=== PATIENT | male | born 1985 | race Caucasian/White ===

== ENCOUNTER 2017-02-02 05:21 | Emergency (ER) | payer SELFPAY ==
[~2017-02-02] VITALS: Ht 175.3 cm; Wt 100.7 kg
[2017-02-02 05:23] VITALS: BP 120/84
--- NOTE | 2017-02-02 05:32 | NUR ---
Erick arango in ED - 02/02/17 at 0533 by [facility] PATIENT AMBULATED TO ER BED 3.
--- NOTE | 2017-02-02 05:33 | NUR ---
PATIENT TO ER BED 3.
--- NOTE | 2017-02-02 05:37 | NUR ---
31 Y/O M W/C/O RUPTURE OF VARICOSE ULCER TO R INNER ANKLE X TODAY AT 0410 AM. BLEEDING UNDER CONTROL BUT PT STATES TO BE IN PAIN. NO S/S OF DISTRESS NOTED, ER MADE AWARE.
[2017-02-02] MEDS ORDERED: ACETAMINOPHEN EXTRA STRENGTH 500 MG TAB PO ONE (06:45)
[2017-02-02 07:24] VITALS: BP 122/74
--- NOTE | 2017-02-02 07:24 | NUR ---
Patient discharged with v/s stable. Written and verbal after care instructions given and explained. Patient alert, oriented and verbalized understanding of instructions. Wheel Chair Assisted with to car. All questions addressed prior to discharge. ID band removed. Patient advised to follow up with PMD. Rx of KEFLEX, NAPROSYN given. Patient educated on indication of medication including possible reaction and side effects. Opportunity to ask questions provided and answered.
== END 2017-02-02 07:24 | disposition home or self-care (01) ==
LOC: MED 05:21
DX: I83.018 Varicose veins of right lower extremity with ulcer other part of lower leg (principal)

== ENCOUNTER 2017-02-04 21:55 | Emergency (ER) | payer SELFPAY ==
[~2017-02-04] VITALS: Ht 175.3 cm; Wt 100.7 kg
[2017-02-04 21:58] VITALS: BP 140/90
--- NOTE | 2017-02-04 22:44 | NUR ---
TO ER BED 6
--- NOTE | 2017-02-04 22:50 | NUR ---
PT IS 31/M BIB SELF TO ED WITH RT ANKLE PAIN,WITH REDNESS, SWELLING FOR 6 MONTHS. DENIES N/V/D; SKIN IS PINK/WARM/DRY; AAOX4; LUNGS CLEAR BL; HR EVEN AND REGULAR; PT DENIES ANY FEVER, CP, SOB, OR COUGH AT THIS TIME; PATIENT STATES PAIN OF 8/10 AT THIS TIME; VSS; PATIENT POSITIONED FOR COMFORT; HOB ELEVATED; BEDRAILS UP X2; BED DOWN. ER MD MADE AWARE OF PT STATUS.
[2017-02-04] MEDS ORDERED: PIPERACILLIN/TAZOBACTAM 3.375 GM in DEXTROSE 5% 50 ML IV ONE (23:10)
[2017-02-04] MEDS ORDERED: VANCOMYCIN PER PHARMACY MC PRN (23:10)
[2017-02-04] MEDS ORDERED: VANCOMYCIN 1GM/DEXT 5% PREMIX 200 ML IV ONE (23:10)
[2017-02-04] MEDS ORDERED: PIPERACILLIN/TAZOBACTAM 3.375 GM VIAL IV ONE (23:40)
[2017-02-04] MEDS ORDERED: VANCOMYCIN 1,000 MG VIAL ONE (23:47)
--- NOTE | 2017-02-05 00:01 | NUR ---
PT TAKEN OFF UNIT TO CT
--- NOTE | 2017-02-05 00:20 | NUR ---
PT BACK ON UNIT FROM CT. IV MEDS RESUMED.
--- NOTE | 2017-02-05 01:30 | NUR ---
PT RESTING IN BED. NO SOB NOTED. WILL CONTINUE TO CLOSELY MONITOR.
--- NOTE | 2017-02-05 03:31 | NUR ---
Patient discharged with v/s stable. Written and verbal after care instructions given and explained. Patient alert, oriented and verbalized understanding of instructions. Ambulatory with steady gait. All questions addressed prior to discharge. ID band removed. Patient advised to follow up with PMD. Rx of DOXYCYCLINE, LEVOFLOAXICIN, NORCO given. Patient educated on indication of medication including possible reaction and side effects. Opportunity to ask questions provided and answered.
[2017-02-05 03:32] VITALS: BP 118/83
== END 2017-02-05 03:31 | disposition home or self-care (01) ==
LOC: MED 21:55
DX: E11.622 Type 2 diabetes mellitus with other skin ulcer (principal); L97.819 Non-pressure chronic ulcer of other part of right lower leg with unspecified severity
CPT/HCPCS: 36415; 73700; 80053; 83605; 85025; 96365; 96368; 99285; J2543; J3370; J7060

== ENCOUNTER 2017-05-31 22:11 | Emergency (ER) | payer SELFPAY ==
[~2017-05-31] VITALS: Ht 172.7 cm; Wt 104.3 kg
[2017-05-31 22:20] VITALS: BP 136/86
[2017-05-31] MEDS ORDERED: ACET-2869 PO (22:31)
--- NOTE | 2017-05-31 22:46 | NUR ---
Patient ambulated using crutches to bed 07.
--- NOTE | 2017-05-31 22:53 | NUR ---
PATIENT PRESENTS TO ED WITH C/O RT. LEG PAIN. PT. S/P RT. LEG WOUND DEBIDEMENT THIS MORNING AT [facility]. PAIN INCREASES. NORCO 5/325 MG TAKEN AT 1800, PAIN NOT RELIEF. REQUESTS FOR STRONGER PAIN MED. NO MEDICAL HX. DENIES N/V/D; SKIN IS PINK/WARM/DRY; AAOX4 WITH EVEN AND STEADY GAIT; LUNGS CLEAR BL; HR EVEN AND REGULAR; PT DENIES ANY FEVER, CP, SOB, OR COUGH AT THIS TIME; PATIENT STATES PAIN OF 10/10 AT THIS TIME; VSS; PATIENT POSITIONED FOR COMFORT; HOB ELEVATED; BEDRAILS UP X2; BED DOWN. ER MD MADE AWARE OF PT STATUS.
--- NOTE | 2017-05-31 23:39 | NUR ---
Dr. Lancaster evaluating patient at bedside.
[2017-05-31] MEDS ORDERED: HYDROmorphone PFS 2 MG/ML SYR IM ONE (23:45)
[2017-06-01 00:07] VITALS: BP 121/88
--- NOTE | 2017-06-01 00:07 | NUR ---
Patient discharged with v/s stable. Written and verbal after care instructions given and explained. Patient alert, oriented and verbalized understanding of instructions. Ambulatory with crutches. All questions addressed prior to discharge. ID band removed. Patient advised to follow up with PMD. Rx of percocet given. Patient educated on indication of medication including possible reaction and side effects. Opportunity to ask questions provided and answered.
== END 2017-06-01 00:07 | disposition home or self-care (01) ==
LOC: MED 22:11
DX: Z48.01 Encounter for change or removal of surgical wound dressing (principal); M79.661 Pain in right lower leg; R03.0 Elevated blood-pressure reading, without diagnosis of hypertension
CPT/HCPCS: 96372; 99283; J1170